=== PATIENT | male | born 1970 | race Caucasian/White ===

== ENCOUNTER 2017-12-06 19:34 | Emergency (ER) | payer OTHER ==
[~2017-12-06] VITALS: Ht 190.5 cm; Wt 86.2 kg
[~2017-12-06 19:34] MED LIST: CLEOCIN HCL150 MG PO; HYDROCODONE-APA1 TA1 PO; PREDNISONE50 MG PO
[2017-12-06 20:26] LABS: HEMATOCRIT 39.8 % (42.0-52.0); HEMOGLOBIN 13.3 gm/dL (14.0-18.0); MCH 29.7 pg (26.0-34.0); MCHC 33.4 g/dL (28.0-37.0); MCV 88.9 fL (80.0-100.0); MPV 6.5 fl. (7.2-11.1); NUCLEATED RBCS 0 /100WBC; PLATELET COUNT* 432 thou/uL (150-400); RBC 4.48 mil/uL (4.50-6.00); RDW-CV 13.2 % (10.5-14.5); WBC 28.6 thou/uL (4.0-11.0)
[2017-12-06 20:33] LABS: CALCIUM 9.1 mg/dL (8.5-10.1); POTASSIUM 3.5 mmol/L (3.5-5.1)
[2017-12-06 20:38] LABS: ALBUMIN 3.2 g/dL (3.4-5.0); TOTAL BILIRUBIN 0.2 mg/dL (<0.1-1.0); TOTAL PROTEIN 7.2 g/dL (6.4-8.2)
[2017-12-06 20:54] LABS: ABSOLUTE LYMPHOCYTES 1.7 thou/uL (0.8-5.3); ABSOLUTE NEUTROPHILS 24.9 thou/uL (1.6-8.1)
[2017-12-06 20:57] LABS: PLATELET ESTIMATE INCREASED
[2017-12-06] MEDS ORDERED: OXYCODON-ACETA1 EAC1 PO (23:09)
[2017-12-06] MEDS ORDERED: CLEOCIN HCL150 MG PO (23:09)
[2017-12-06 23:55] VITALS: BP 118/66
== END 2017-12-06 23:56 | disposition home or self-care (01) ==
LOC: M.ERS 19:34
PROVIDERS: Emergency Medicine
DX: J02.9 Acute pharyngitis, unspecified (principal); M10.9 Gout, unspecified; F17.210 Nicotine dependence, cigarettes, uncomplicated; Z87.442 Personal history of urinary calculi

== ENCOUNTER 2019-02-13 20:49 | Emergency (ER) | payer OTHER ==
[~2019-02-13] VITALS: Ht 190.5 cm; Wt 88.5 kg
[~2019-02-13 20:49] MED LIST changes: +OXYCODON-ACETA1 EAC1 PO
[2019-02-13 21:09] LABS: ABSOLUTE BASOPHILS 0.1 thou/uL (0.0-0.2); ABSOLUTE EOSINOPHILS 0.4 thou/uL (0.0-0.7); ABSOLUTE LYMPHOCYTES 1.8 thou/uL (0.8-5.3); ABSOLUTE MONOCYTES 1.7 thou/uL (0.0-1.2); ABSOLUTE NEUTROPHILS 6.2 thou/uL (1.6-8.1); BASOPHILS 1.3 %; EOSINOPHILS 3.7 %; HEMATOCRIT 41.7 % (42.0-52.0); LYMPHOCYTES 17.3 %; MCH 30.4 pg (26.0-34.0); MCHC 33.5 g/dL (28.0-37.0); MCV 90.6 fL (80.0-100.0); MPV 7.1 fl. (7.2-11.1); NUCLEATED RBCS 0 /100WBC; PLATELET COUNT* 275 thou/uL (150-400); POLYS 60.7 %; WBC 10.1 thou/uL (4.0-11.0)
[2019-02-13 21:17] LABS: PROTIME 10.4 Seconds (9.20-11.50)
[2019-02-13 21:23] LABS: POTASSIUM 3.7 mmol/L (3.5-5.1)
[2019-02-13 21:28] LABS: ALBUMIN 3.4 g/dL (3.4-5.0); TOTAL BILIRUBIN 0.2 mg/dL (<0.1-1.0)
[2019-02-13 23:37] LABS: URINE BILIRUBIN NEGATIVE (Negative); URINE BLOOD 1+ (Negative); URINE CLARITY CLEAR; URINE COLOR YELLOW; URINE GLUCOSE-RANDOM NEGATIVE (Negative); URINE KETONES NEGATIVE (Negative); URINE LEUKOCYTES-REFLEX NEGATIVE (Negative); URINE NITRITE-REFLEX NEGATIVE (Negative); URINE PROTEIN NEGATIVE (Negative); URINE SPECIFIC GRAVITY 1.015 (1.005-1.030); URINE UROBILINOGEN 0.2 E.U./dl (0.2-1.0)
[2019-02-13 23:45] LABS: AMP/METHAMP POSITIVE (Negative); BARBITURATES Negative (Negative); BENZODIAZEPINES Negative (Negative); COCAINE Negative (Negative); METHADONE Negative (Negative); OPIATES POSITIVE (Negative); PCP Negative (Negative); THC POSITIVE (Negative)
[2019-02-14 00:08] LABS: HYALINE CASTS 0-3 Few /LPF (None Seen); SQUAMOUS 0-3 Few /LPF (0-3)
[2019-02-14 00:09] LABS: BACTERIA-REFLEX 1-9 Few /HPF (None Seen); CRYSTALS None Seen /LPF (None Seen); URINE WBC-REFLEX 0-5 Rare /HPF (0-5)
[2019-02-14] MEDS ORDERED: FLEXERIL PO (03:27)
[2019-02-14] MEDS ORDERED: NORCO 5-325 TA1 EAC1 PO (03:27)
[2019-02-14 03:55] VITALS: BP 122/69
[2019-02-15 09:08] LABS: HEPATITIS B SURFACE AG Negative (Negative)
[2019-02-15 09:08] LABS: HIV-1/HIV-2 ANTIBODY Non Reactive (Non Reactive)
== END 2019-02-14 03:57 | disposition home or self-care (01) ==
LOC: M.ERS 20:49
PROVIDERS: Emergency Medicine
DX: S30.0XXA Contusion of lower back and pelvis, initial encounter (principal); M10.9 Gout, unspecified; F17.210 Nicotine dependence, cigarettes, uncomplicated; W10.9XXA Fall (on) (from) unspecified stairs and steps, initial encounter; Y93.89 Activity, other specified; Y92.89 Other specified places as the place of occurrence of the external cause; Y99.8 Other external cause status

== ENCOUNTER 2019-05-29 04:08 | Emergency (ER) | payer OTHER ==
[~2019-05-29] VITALS: Ht 182.9 cm; Wt 86.2 kg
[~2019-05-29 04:08] MED LIST changes: +FLEXERIL PO; +NORCO 5-325 TA1 EAC1 PO
[2019-05-29 04:45] LABS: HEMOGLOBIN 14.5 gm/dL (14.0-18.0); MCH 30.2 pg (26.0-34.0); MCHC 33.7 g/dL (28.0-37.0); MCV 89.6 fL (80.0-100.0); MPV 6.7 fl. (7.2-11.1); NUCLEATED RBCS 0 /100WBC; PLATELET COUNT* 292 thou/uL (150-400); WBC 6.7 thou/uL (4.0-11.0)
[2019-05-29 05:02] LABS: CREATININE 1.2 mg/dL (0.6-1.3); POTASSIUM 3.5 mmol/L (3.5-5.1)
[2019-05-29 05:06] LABS: ALBUMIN 3.2 g/dL (3.4-5.0); TOTAL BILIRUBIN 0.3 mg/dL (<0.1-1.0); TOTAL PROTEIN 7.2 g/dL (6.4-8.2)
[2019-05-29 05:30] LABS: INFLUENZA A ANTIGEN Positive (Negative); INFLUENZA B ANTIGEN Negative (Negative)
[2019-05-29 05:57] LABS: ABSOLUTE LYMPHOCYTES 0.9 thou/uL (0.8-5.3); ABSOLUTE MONOCYTES 2.1 thou/uL (0.0-1.2); ABSOLUTE NEUTROPHILS 3.7 thou/uL (1.6-8.1); ANISOCYTOSIS 1+; PLATELET ESTIMATE ADEQUATE; POIKILOCYTOSIS 1+
[2019-05-29] MEDS ORDERED: TAMIFLU75 MG PO (06:26)
[2019-05-29 07:29] VITALS: BP 117/71
== END 2019-05-29 07:30 | disposition home or self-care (01) ==
LOC: M.ERS 04:08
PROVIDERS: Personal Emergency Response Attendant
DX: J10.1 Influenza due to other identified influenza virus with other respiratory manifestations (principal); E86.0 Dehydration; M10.9 Gout, unspecified; F17.210 Nicotine dependence, cigarettes, uncomplicated; Z87.442 Personal history of urinary calculi

== ENCOUNTER 2021-08-18 10:52 | Emergency (ER) | payer OTHER ==
[~2021-08-18] VITALS: Ht 190.5 cm; Wt 86.2 kg
[~2021-08-18 10:52] MED LIST changes: +TAMIFLU75 MG PO
[2021-08-18] MEDS ORDERED: HYDROCODON-ACE1 EAC7 PO (11:52)
[2021-08-18] MEDS ORDERED: AMOXICILLIN 50500 MG PO (11:52)
[2021-08-18 12:04] VITALS: BP 122/71
== END 2021-08-18 12:05 | disposition home or self-care (01) ==
LOC: M.ERS 10:52
DX: R59.1 Generalized enlarged lymph nodes (principal); F17.210 Nicotine dependence, cigarettes, uncomplicated